=== PATIENT | male | born 2000 | race Caucasian/White ===

== ENCOUNTER 2020-10-21 22:44 | Emergency (ER) | payer OTHER ==
[~2020-10-21] VITALS: Ht 190 cm; Wt 117.0 kg
[2020-10-21] MEDS ORDERED: AMOX-358 PO (23:31)
--- NOTE | 2020-10-21 23:33 | ED EENT ---
History of Present Illness General Chief Complaint: Ear Problems Stated Complaint: R EAR BLEEDING, NAUSEA Source: patient Exam Limitations: no limitations History of Present Illness Date Seen by Provider: Oct 21, 2020 Time Seen by Provider: 23:20 Initial Comments Patient is a 20-year-old male who presents to the emergency room with a chief complaint of right ear bleeding, decreased hearing some nausea and pain. Patient states that he was doing a flip into some water while swimming and landed with his right ear on top of the water very forcefully. Patient had immediate pain and bleeding. No history of ear trauma in the past. No repetitive ear infections, no history of PE tubes. Patient states that he has pretty significant amount of discomfort he did take 1000 g of ibuprofen prior to coming to the emergency department. No other complaints of illness or injury. All other review of systems reviewed and negative except as stated. Timing/Duration: abrupt Severity: moderate Location: ear (R) Prearrival Treatment: over the counter meds (1000 g of ibuprofen) Associated Symptoms: change in hearing, ear drainage Allergies and Home Medications Home Medications Amoxicillin/Potassium Clav 1 Each Tablet, 1 EACH PO BID Prescribed by: RHIANNON LUU on 10/21/20 0721 Patient Home Medication List Home Medication List Reviewed: Yes Review of Systems Review of Systems Constitutional: see HPI Eyes: No Symptoms Reported Ears: Bloody Discharge Nose: no symptoms reported Mouth: no symptoms reported Throat: no symptoms reported Respiratory: no symptoms reported Cardiovascular: no symptoms reported Skin: no symptoms reported Neurological: No Symptoms Reported All Other Systems Reviewed Negative Unless Noted: Yes Physical Exam Height, Weight, BMI Height: '" Weight: lbs. oz. kg; BMI Method: General Appearance: WD/WN, no apparent distress Eyes: bilateral eye normal inspection, bilateral eye PERRL, bilateral eye EOMI Ears: right ear auricle normal, right ear bleeding (Bleeding noted in the canal and at the margins of the tympanic membrane), right ear TM perforation (TM appears perforated and pulled away from the ear canal. There is some fluid noted in the visualized portions of the TM.) Nose: normal inspection Mouth/Throat: normal mouth inspection Cardiovascular: regular rate, rhythm Respiratory: lungs clear, normal breath sounds, no respiratory distress, no accessory muscle use Neurologic/Psychiatric: no motor/sensory deficits, alert, normal mood/affect, oriented x 3 Skin: normal color, warm/dry Progress/Results/Core Measures Progress Progress Note : Time: 23:29 Progress Note Patient is is seen and evaluated noted to have ruptured right tympanic membrane. Educated the patient on not allowing any water to get into the right ear canal, he needs to make sure the ear canal is occluded when showering. We will put the patient on some antibiotics and refer him to ENT. I have advised him that he will have significantly decreased hearing from the right ear for several weeks. I am going to put him on some prophylactic antibiotics, Augmentin. Patient will be given good return precautions. He verbalized understanding all questions are sought and answered. Patient is stable for discharge. Departure Impression Primary Impression: Rupture of right tympanic membrane Disposition: HOME, SELF-CARE Condition: Stable Departure-Patient Inst. Decision time for Depature: 23:30 Referrals: JUANY GERARDO MD Patient Instructions: Ruptured Eardrum (DC) Add. Discharge Instructions: Take the antibiotics as prescribed twice a day for the next 7 days. Do not get water in your right ear until you have been seen by the ear nose and throat doctor. Make sure that you occlude the right ear canal with cotton balls while you are showering. [id number] ibuprofen at max 800 mg which is 4 tablets with food every 8 hours for pain over the course of the next 5 days. Please call for follow-up with an ear nose and throat doctor. I have given you referral information for Dr. Gerardo and Dr. Hima Mercado. Dr. Gerardo is in [place] Dr. Mercado is in [place]. Return to the emergency room for any worsening ear pain especially associated with fever, headache, nausea vomiting or any other emergent concerning symptoms. Dr Hima Mercado [address] [phone] Scripts Amoxicillin/Potassium Clav (Augmentin 875-125 Tablet) 1 Each Tablet 1 EACH PO BID, #14 TAB 0 Refills Prov: RHIANNON LUU MD 10/21/20 RHIANNON LUU MD Oct 21, 2020 23:33
[2020-10-21 23:44] VITALS: BP 115/69
== END 2020-10-21 23:44 | disposition home or self-care (01) ==
LOC: ER 22:48
DX: H72.91 Unspecified perforation of tympanic membrane, right ear (principal)
CPT/HCPCS: 99282

== ENCOUNTER → 2022-12-07 | Outpatient (CLI) | payer BC, OTHER ==
[~2022-12-07] MED LIST: AMOX-358 PO
== END ==
LOC: CARD 12:02
PROVIDERS: ATTEND Family Medicine Sports Medicine
DX: I51.7 Cardiomegaly (principal)
CPT/HCPCS: 93320